=== PATIENT | male | born 1990 | race Caucasian/White ===

== ENCOUNTER 2016-09-17 02:45 | Emergency (ER) | payer SELFPAY ==
[~2016-09-17] VITALS: Ht 175.3 cm; Wt 77.0 kg
[~2016-09-17 02:45] MED LIST: ALBU1AER INH; BENZ100 PO; IBUP800T23 PO; PRED20 PO
[2016-09-17 02:53] VITALS: BP 150/95; PULSE 108; RESP 18; TEMP 98.6; O2SAT 100
[2016-09-17] MEDS ORDERED: TETANUS/DIPHTHERIA TOXOID ADULT 0.5 ML VIAL IM ONE (03:15)
[2016-09-17] MEDS ORDERED: MORPHINE SULFATE 8 MG/ML INJ IV PUSH ONE (03:15)
[2016-09-17] MEDS ORDERED: ceFAZolin 2 GM PREMIX 50 ML IV ONE (03:15)
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
[2016-09-17] MEDS ORDERED: HYDR-3533 PO (05:50)
[2016-09-17 05:52] VITALS: BP 123/66; PULSE 107; RESP 26; O2SAT 100
[2016-09-17] MEDS ORDERED: MORPHINE SULFATE 4 MG/ML INJ IV PUSH ONE (06:00)
[2016-09-17] MEDS ORDERED: oxyCODONE/ACETAMINOPHEN 5 MG/325 MG TAB PO ONE (06:30)
== END 2016-09-17 06:54 | disposition home or self-care (01) ==
LOC: NEPE 02:45
DX: S91.341A Puncture wound with foreign body, right foot, initial encounter (principal); Y24.9XXA Unspecified firearm discharge, undetermined intent, initial encounter; Y92.810 Car as the place of occurrence of the external cause; Z23 Encounter for immunization
CPT/HCPCS: 73600; 73620; 90471; 90714; 96365; 96375; 96376; 99285; E0113; J0690; J2270

== ENCOUNTER 2016-11-05 19:09 | Inpatient (IN) | payer SELFPAY ==
[~2016-11-05] VITALS: Ht 175.3 cm; Wt 85.5 kg
[~2016-11-05 19:09] MED LIST changes: -ALBU1AER INH; -BENZ100 PO; +HYDR-3533 PO; -IBUP800T23 PO; -PRED20 PO
[2016-11-05 19:10] VITALS: BP 148/74; PULSE 113; RESP 18; TEMP 98.3; O2SAT 100
[2016-11-05] MEDS ORDERED: KETOROLAC TROMETHAMINE 30 MG/ML (IVP) VIAL IVP ONE (19:30)
[2016-11-05] MEDS ORDERED: VANCOMYCIN INJ 1,000 MG in SODIUM CHLOR 0.9% 250 ML INJ 250 ML IV ONE (19:45)
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
[2016-11-05] MEDS ORDERED: ACETAMINOPHEN/HYDROcodone 325 MG/5 MG TAB PO ONE (20:00)
[2016-11-05 20:18] LABS: AUTOMATED NEUTROPHIL # 7.5 TH/MM3 (1.8-7.7); BASOPHIL % 0.4 % (0.0-2.0); EOSINOPHIL # 0.4 TH/MM3 (0-0.4); EOSINOPHIL % 3.7 % (0.0-4.0); HEMATOCRIT 42.6 % (39.0-51.0); HEMO FLAGS DIFF FINAL; LYMPH % 18.6 % (9.0-44.0); LYMPHOCYTE # 2.1 TH/MM3 (1.0-4.8); MEAN CELL VOLUME 80.7 FL (80.0-100.0); MEAN CORPUSCULAR HEMOGLOBIN 27.2 PG (27.0-34.0); MEAN CORPUSCULAR HGB CONC 33.7 % (32.0-36.0); MONO % 11.1 % (0.0-8.0); NEUT % 66.2 % (16.0-70.0); PLATELET COUNT 218 TH/MM3 (150-450); RED BLOOD COUNT 5.28 MIL/MM3 (4.50-5.90); RED CELL DISTRIBUTION WIDTH 13.8 % (11.6-17.2); WHITE BLOOD COUNT 11.3 TH/MM3 (4.0-11.0)
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
[2016-11-05 20:35] LABS: BICARBONATE 27.9 MEQ/L (21.0-32.0); POTASSIUM 5.2 MEQ/L (3.5-5.1)
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
[2016-11-05] MEDS ORDERED: BISACODYL 10 MG SUPP RECTAL PRN (21:15)
[2016-11-05] MEDS ORDERED: ACETAMINOPHEN 325 MG TAB PO PRN (21:15)
[2016-11-05] MEDS ORDERED: SENNOSIDES 8.6 MG TAB PO PRN (21:15)
[2016-11-05] MEDS ORDERED: MAGNESIUM HYDROXIDE SUSP 30 ML CUP PO PRN (21:15)
[2016-11-05] MEDS ORDERED: LACTULOSE SYRUP 20 GM/30 ML CUP PO PRN (21:15)
[2016-11-05] MEDS ORDERED: ONDANSETRON HCL 4 MG/2 ML VIAL IVP PRN (21:15)
[2016-11-05] MEDS ORDERED: Vancomycin Consult Pharmacy 1 EA OTHER SCH (21:15)
[2016-11-05] MEDS ORDERED: GADODIAMIDE PF 287 MG/ML 20 ML VIAL (for RAD MRI) IV ONE (21:34)
[2016-11-05] MEDS: SODIUM CHLOR 0.9% 1000 ML INJ 1,000 ML IV SCH (21:43)
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
[2016-11-06] VITALS (7 sets, daily range): BP systolic 107–130; BP diastolic 57–69; PULSE 83–103; RESP 14–22; TEMP 97.8–99.8; O2SAT 98–100
[2016-11-06] MEDS: CEFEPIME INJ 1,000 MG in SODIUM CHLORIDE 0.9% INJ 100 ML IV SCH ×3 (00:05→22:35)
[2016-11-06] MEDS: VANCOMYCIN INJ 1,250 MG in SODIUM CHLOR 0.9% 250 ML INJ 250 ML IV SCH ×2 (06:01→18:16)
[2016-11-06] MEDS: SODIUM CHLORIDE 0.9% FLUSH 10 ML FLUSH IV FLUSH SCH ×2 (07:48→20:19)
[2016-11-06] MEDS: DOCUSATE SODIUM 50 MG/SENNA 8.6 MG TAB PO SCH ×2 (07:49→20:19)
[2016-11-06] MEDS: SODIUM CHLOR 0.9% 1000 ML INJ 1,000 ML IV SCH ×2 (07:49→18:50)
[2016-11-06 08:34] LABS: AUTOMATED NEUTROPHIL # 4.6 TH/MM3 (1.8-7.7); BASOPHIL % 0.6 % (0.0-2.0); EOSINOPHIL # 0.4 TH/MM3 (0-0.4); EOSINOPHIL % 4.9 % (0.0-4.0); HEMATOCRIT 37.5 % (39.0-51.0); HEMO FLAGS DIFF FINAL; LYMPH % 27.6 % (9.0-44.0); LYMPHOCYTE # 2.4 TH/MM3 (1.0-4.8); MEAN CELL VOLUME 79.1 FL (80.0-100.0); MEAN CORPUSCULAR HEMOGLOBIN 27.4 PG (27.0-34.0); MEAN CORPUSCULAR HGB CONC 34.6 % (32.0-36.0); MONO % 14.4 % (0.0-8.0); NEUT % 52.5 % (16.0-70.0); PLATELET COUNT 189 TH/MM3 (150-450); RED BLOOD COUNT 4.74 MIL/MM3 (4.50-5.90); RED CELL DISTRIBUTION WIDTH 13.8 % (11.6-17.2); WHITE BLOOD COUNT 8.7 TH/MM3 (4.0-11.0)
[2016-11-06] MEDS ORDERED: MORPHINE SULFATE 4 MG/ML INJ IV PUSH ONE (08:45)
[2016-11-06 09:07] LABS: ALKALINE PHOSPHATASE 51 U/L (45-117); ALT (GPT) 104 U/L (12-78); ANION GAP 6 MEQ/L (5-15); AST (GOT) 43 U/L (15-37); BICARBONATE 27.3 MEQ/L (21.0-32.0); BLOOD UREA NITROGEN 9 MG/DL (7-18); CHLORIDE 107 MEQ/L (98-107); GLOMERULAR FILTRATION RATE 104 ML/MIN (>89); POTASSIUM 4.2 MEQ/L (3.5-5.1); SODIUM (NA) 140 MEQ/L (136-145); TOTAL BILIRUBIN ADULT 0.4 MG/DL (0.2-1.0)
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
[2016-11-06] MEDS: KETOROLAC TROMETHAMINE 30 MG/ML (IVP) VIAL IV PUSH SCH ×3 (12:05→23:49)
[2016-11-07] VITALS (7 sets, daily range): BP systolic 119–129; BP diastolic 55–80; PULSE 78–90; RESP 16–20; TEMP 97.7–98.1; O2SAT 97–100
[2016-11-07] MEDS: MORPHINE SULFATE 4 MG/ML INJ IV PUSH PRN ×6 (00:33→23:26)
[2016-11-07] MEDS: KETOROLAC TROMETHAMINE 30 MG/ML (IVP) VIAL IV PUSH SCH ×3 (05:21→17:31)
[2016-11-07] MEDS: SODIUM CHLOR 0.9% 1000 ML INJ 1,000 ML IV SCH ×2 (05:21→11:22)
[2016-11-07] MEDS ORDERED: PHARMACY ORDERED LAB ONE (05:45)
[2016-11-07] MEDS: VANCOMYCIN INJ 1,250 MG in SODIUM CHLOR 0.9% 250 ML INJ 250 ML IV SCH (06:30)
[2016-11-07] MEDS: DOCUSATE SODIUM 50 MG/SENNA 8.6 MG TAB PO SCH ×2 (07:33→21:00)
[2016-11-07] MEDS: SODIUM CHLORIDE 0.9% FLUSH 10 ML FLUSH IV FLUSH SCH ×2 (09:13→21:00)
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
[2016-11-07] MEDS ORDERED: INFLUENZA VIRUS VACCINE (QUADRIVALENT) 0.5 ML SYR IM ONE (10:00)
[2016-11-07] MEDS: CEFEPIME INJ 1,000 MG in SODIUM CHLORIDE 0.9% INJ 100 ML IV SCH (10:43)
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
[2016-11-07] MEDS ORDERED: VANCOMYCIN INJ 1,250 MG in SODIUM CHLOR 0.9% 250 ML INJ 250 ML IV SCH (14:00)
--- NOTE | 2016-11-07 16:37 | HHI.FF ---
Infusion Therapy Location of Infusion Therapy: Ambulatory Infusion Therapy Order Patient Information Patient Weight 84 kg Diagnosis: Diagnosis Cellulitis r. foot osteomyelitis r. foot. Coded Allergies: No Known Allergies (Unverified , 11/05/16) Administer Medication Ceftriaxone 2 grams IV q 24 hours Stop Treatment: Dec 19, 2016 Additional Information Venous access: PICC Line Additional Instructions [x] Peripheral flush and dressing changes per protocol [x] Implanted port and central personal lines account manager: * Implanted port: 10 ml Normal Saline followed by 5 ml Heparin 100 units/ml Heparin flush after each use and monthly to maintain. [] May leave port accessed during therapy. [] May leave peripheral site accessed for duration of therapy. [x] If patient has SOB or respiratory distress, check oxygen saturation. If less than 90% or clinical signs of respiratory distress, administer oxygen at 2 L/min. via nasal cannula and notify physician. [x] Anaphylaxis/Reaction orders: * Stop infusion. * Keep IV line open with saline flush. * Notify physician. * Monitor vital signs every 15 minutes until symptoms resolve. * Check Oxygen saturation; Oxygen at 2 L/min. via nasal cannula if less than 90% or clinical signs of respiratory distress. * Administer diphenhydramine (Benadryl) 25 mg IV STAT, (unless patient has received as pre-med). May repeat once, if necessary. * Solu-Cortef 250 mg IVP over 30-60 seconds, use 100 mg vials for each dissolution. * Epinephrine (1mg/1 ml) 0.3 mg subcutaneously or IVP now with any signs of respiratory distress. * Check with physician for new additional pre-med orders if patient is re- challenged or re-treated. [x] May remove PICC line when treatment complete, after confirming with Physician. [x] If the patient is admitted to the hospital, the ED, or transferred via [facility] , complete transfer form including medication reconciliation order sheet. Laboratory Tests Weekly Labs: BMP, SED Rate Alireza Duran MD Nov 07, 2016 16:37
[2016-11-07] MEDS ORDERED: cefTRIAXone INJ 2,000 MG in SODIUM CHLORIDE 0.9% INJ 100 ML IV SCH (17:00)
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
[2016-11-08] MEDS: KETOROLAC TROMETHAMINE 30 MG/ML (IVP) VIAL IV PUSH SCH ×3 (00:12→11:43)
[2016-11-08] MEDS: SODIUM CHLORIDE 0.9% FLUSH 10 ML FLUSH IV FLUSH PRN ×2 (00:12→05:55)
[2016-11-08] MEDS: SODIUM CHLOR 0.9% 1000 ML INJ 1,000 ML IV SCH ×2 (00:59→08:15)
[2016-11-08] MEDS ORDERED: MORPHINE SULFATE 4 MG/ML INJ IV PUSH ONE (01:15)
[2016-11-08 03:30] VITALS: BP 116/56; PULSE 94; RESP 18; TEMP 98; O2SAT 98
[2016-11-08] MEDS: MORPHINE SULFATE 4 MG/ML INJ IV PUSH PRN ×3 (03:47→11:43)
[2016-11-08] MEDS ORDERED: PHARMACY ORDERED LAB ONE (05:45)
[2016-11-08 08:00] VITALS: BP 133/93; PULSE 82; RESP 20; TEMP 97.4; O2SAT 98
[2016-11-08] MEDS: SODIUM CHLORIDE 0.9% FLUSH 10 ML FLUSH IV FLUSH SCH (08:12)
[2016-11-08] MEDS: DOCUSATE SODIUM 50 MG/SENNA 8.6 MG TAB PO SCH (08:14)
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
[2016-11-08] MEDS ORDERED: SODIUM CHLORIDE 0.9% FLUSH 10 ML FLUSH IV FLUSH PRN (10:15)
--- NOTE | 2016-11-08 10:16 | RADRPT ---
EXAM DATE/TIME: 11/08/2016 09:34 [place] COMPARISON: CHEST SINGLE AP, July 08, 2015, 21:10. INDICATIONS : PICC line placement. MEDICAL HISTORY : None. SURGICAL HISTORY : Tonsillectomy. ENCOUNTER: Initial ACUITY: 4 - 6 days PAIN SCORE: 0/10 LOCATION: Bilateral chest FINDINGS: A single view of the chest demonstrates the lungs to be symmetrically aerated without evidence of mas s, infiltrate or effusion. The cardiomediastinal contours are unremarkable. Osseous structures are intact. There is a PICC line in place from the right arm with the tip overlying the SVC. CONCLUSION: PICC line in good position. Brando Ramirez MD on November 08, 2016 at 10:13 Board Certified Radiologist. This report was verified electronically.
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
[2016-11-08] MEDS ORDERED: IBUP-232 PO (10:26)
[2016-11-08] MEDS ORDERED: OXYC-392 PO (10:26)
[2016-11-08 12:00] VITALS: BP 128/58; PULSE 95; RESP 20; TEMP 97.9; O2SAT 98
[2016-11-08 12:43] VITALS: RESP 16
[2016-11-08] MEDS ORDERED: EPIN1INJ21 SQ (15:08)
[2016-11-08] MEDS ORDERED: EPIN1INJ21 IV PUSH (15:08)
[2016-11-08] MEDS ORDERED: CEFT2INJ IM (15:08)
[2016-11-08] MEDS ORDERED: SOLU250I IV PUSH (15:08)
[2016-11-09] MEDS ORDERED: SODIUM CHLORIDE 0.9% FLUSH 10 ML FLUSH IV FLUSH SCH (09:00)
== END 2016-11-08 13:30 | disposition home or self-care (01) | DRG 540 ==
LOC: NEPD 19:09 → NEDA 21:07 → NEPGCP 23:27 → NEDA 11-06 21:23 → OBSVTOIN 11-07 07:42 → N04B 11-07 15:26
PROVIDERS: ADMIT Hospitalist; ATTEND Hospitalist
PROC: 02HV33Z Insertion of Infusion Device into Superior Vena Cava, Percutaneous Approach (ICD-10-PCS; principal; 2016-11-08)
PROC: B548ZZA Ultrasonography of Superior Vena Cava, Guidance (ICD-10-PCS; 2016-11-08)
DX: M86.8X7 Other osteomyelitis, ankle and foot (principal); L03.115 Cellulitis of right lower limb; E87.5 Hyperkalemia; E86.0 Dehydration; B19.20 Unspecified viral hepatitis C without hepatic coma
CPT/HCPCS: 36569; 71010; 73630; 73720; 76937; 80048; 80053; 80202; 82565; 83605; 85025; 85652; 86140; 86403; 87040; 87070; 87147; 87186; 87205; 96374; 96375; A9579; G0378; J0692; J0696; J1885; J2270; J3370; J7030; J7050; L2114

== ENCOUNTER 2016-12-19 00:11 | Emergency (ER) | payer SELFPAY ==
[~2016-12-19 00:11] MED LIST changes: +CEFT2INJ2 IV; -HYDR-3533 PO; +IBUP800T23 PO
[2016-12-19 00:13] VITALS: BP 141/86; PULSE 84; RESP 16; TEMP 98.4; O2SAT 99
== END 2016-12-19 01:18 | disposition left against medical advice (07) ==
LOC: NED 00:11
DX: M86.9 Osteomyelitis, unspecified (principal); Z53.21 Procedure and treatment not carried out due to patient leaving prior to being seen by health care provider
CPT/HCPCS: 99281

== ENCOUNTER 2016-12-19 14:34 | Emergency (ER) | payer SELFPAY ==
[~2016-12-19] VITALS: Ht 175.3 cm; Wt 75.0 kg
[2016-12-19 14:36] VITALS: BP 134/84; PULSE 86; RESP 20; TEMP 97.9; O2SAT 100
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
[2016-12-19] MEDS ORDERED: cefTRIAXone INJ 2,000 MG in SODIUM CHLORIDE 0.9% INJ 100 ML IV SCH (15:45)
[2016-12-19 16:33] LABS: AUTOMATED NEUTROPHIL # 1.9 TH/MM3 (1.8-7.7); BASOPHIL % 0.9 % (0.0-2.0); EOSINOPHIL # 0.2 TH/MM3 (0-0.4); EOSINOPHIL % 5.4 % (0.0-4.0); HEMATOCRIT 41.5 % (39.0-51.0); HEMO FLAGS DIFF FINAL; LYMPH % 38.6 % (9.0-44.0); LYMPHOCYTE # 1.7 TH/MM3 (1.0-4.8); MEAN CELL VOLUME 78.5 FL (80.0-100.0); MEAN CORPUSCULAR HEMOGLOBIN 25.5 PG (27.0-34.0); MEAN CORPUSCULAR HGB CONC 32.5 % (32.0-36.0); MONO % 11.9 % (0.0-8.0); NEUT % 43.2 % (16.0-70.0); PLATELET COUNT 235 TH/MM3 (150-450); RED BLOOD COUNT 5.29 MIL/MM3 (4.50-5.90); RED CELL DISTRIBUTION WIDTH 13.2 % (11.6-17.2); WHITE BLOOD COUNT 4.5 TH/MM3 (4.0-11.0)
[2016-12-19 16:53] LABS: BICARBONATE 28.8 MEQ/L (21.0-32.0); POTASSIUM 4.3 MEQ/L (3.5-5.1)
== END 2016-12-19 18:41 | disposition home or self-care (01) ==
LOC: NEPD 14:34
DX: Z02.89 Encounter for other administrative examinations (principal); F19.90 Other psychoactive substance use, unspecified, uncomplicated; Z72.0 Tobacco use; Z87.39 Personal history of other diseases of the musculoskeletal system and connective tissue; Z86.59 Personal history of other mental and behavioral disorders; Z86.19 Personal history of other infectious and parasitic diseases
CPT/HCPCS: 80048; 85025; 85652; 86140; 99283

== ENCOUNTER 2016-12-29 16:25 | Emergency (ER) | payer OTHER ==
[~2016-12-29] VITALS: Ht 167.6 cm; Wt 80.0 kg
--- NOTE | 2016-12-29 16:40 | PD ---
HPI Chief Complaint: PSYCH Time Seen by Provider: 16:37 Travel History International Travel<30 days: No Contact w/Intl Traveler<30days: No History of Present Illness HPI 26-year-old male presents to the emergency department via [facility] under the [place] Parte Act, with history of multiple substance abuse, and suicidal ideation. Patient states he has not used anything the last 2 days. He states he feels depressed and suicidal. He has no specific plan currently. He has no current acute medical problems or complaints. Patient denies recent alcohol use. Patient has no known drug allergies. PFSH Past Medical History Blood Disorders: No Anxiety: Yes Depression: Yes (PTSD) Heart Rhythm Problems: No Cancer: No Cardiovascular Problems: No High Cholesterol: No Chemotherapy: No Chest Pain: No Congestive Heart Failure: No Diminished Hearing: No Endocrine: No Genitourinary: No Hepatitis: Yes (C) Immune Disorder: No Musculoskeletal: No Neurologic: No Psychiatric: No Reproductive: No Respiratory: No Radiation Therapy: No Past Surgical History Tonsillectomy: Yes Other Surgery: Yes (Adenoids) Social History Alcohol Use: No ( ) Tobacco Use: Yes (2 pack ) Substance Use: Yes (pain meds, oxycodone, hydromorphone, dilaudid last used yesterday) Allergies-Medications (Allergen,Severity, Reaction): Coded Allergies: No Known Allergies (Unverified , 12/19/16) Reported Meds & Prescriptions Reported Meds & Active Scripts Active No Active Prescriptions or Reported Medications Review of Systems Except as stated in HPI: all other systems reviewed are Neg General / Constitutional: No: Fever Eyes: No: Visual changes HENT: No: Headaches Cardiovascular: No: Chest Pain or Discomfort Respiratory: No: Shortness of Breath Gastrointestinal: No: Abdominal Pain Genitourinary: No: Dysuria Musculoskeletal: No: Pain Skin: No Rash Neurologic: No: Weakness Psychiatric: Positive: Depression, Suicidal Ideations, Substance Abuse Endocrine: No: Polydipsia Hematologic/Lymphatic: No: Easy Bruising Physical Exam Narrative GENERAL: No Acute Distress. SKIN: Warm and dry. No Signs cellulitis. HEAD: Atraumatic. Normocephalic. EYES: Pupils equal and round. No scleral icterus. No injection or drainage. ENT: No nasal bleeding or discharge. Mucous membranes pink and moist. Pharynx clear. NECK: Trachea midline. Supple. CARDIOVASCULAR: Regular rate and rhythm. RESPIRATORY: No accessory muscle use. Clear to auscultation. Breath sounds equal bilaterally. GASTROINTESTINAL: Abdomen soft, non-tender, nondistended. Hepatic and splenic margins not palpable. MUSCULOSKELETAL: Extremities without clubbing, cyanosis, or edema. No obvious deformities. NEUROLOGICAL: Awake and alert. No obvious cranial nerve deficits. Motor grossly within normal limits. Five out of 5 muscle strength in the arms and legs. Normal speech. PSYCHIATRIC: Appropriate mood and affect; insight and judgment normal. Data Data Last Documented VS Vital Signs Date Time Temp Pulse Resp B/P Pulse Ox O2 Delivery O2 Flow Rate FiO2 12/29/16 19:13 63 16 123/57 100 Room Air 12/29/16 16:49 98.2 Orders Complete Blood Count With Diff (12/29/16 16:36) Comprehensive Metabolic Panel (12/29/16 16:36) Psych Screen (12/29/16 16:36) Drug Screen, Random Urine (12/29/16 16:36) Diet Regular Basic (12/29/16 Dinner) Labs Laboratory Tests Test 12/29/16 16:40 White Blood Count 5.5 TH/MM3 Red Blood Count 5.31 MIL/MM3 Hemoglobin 13.5 GM/DL Hematocrit 40.5 % Mean Corpuscular Volume 76.2 FL Mean Corpuscular Hemoglobin 25.4 PG Mean Corpuscular Hemoglobin 33.3 % Concent Red Cell Distribution Width 13.5 % Platelet Count 232 TH/MM3 Mean Platelet Volume 8.6 FL Neutrophils (%) (Auto) 51.6 % Lymphocytes (%) (Auto) 30.5 % Monocytes (%) (Auto) 11.3 % Eosinophils (%) (Auto) 5.6 % Basophils (%) (Auto) 1.0 % Neutrophils # (Auto) 2.8 TH/MM3 Lymphocytes # (Auto) 1.7 TH/MM3 Monocytes # (Auto) 0.6 TH/MM3 Eosinophils # (Auto) 0.3 TH/MM3 Basophils # (Auto) 0.1 TH/MM3 CBC Comment DIFF FINAL Differential Comment Sodium Level 137 MEQ/L Potassium Level 4.1 MEQ/L Chloride Level 105 MEQ/L Carbon Dioxide Level 26.1 MEQ/L Anion Gap 6 MEQ/L Blood Urea Nitrogen 12 MG/DL Creatinine 1.22 MG/DL Estimat Glomerular Filtration 72 ML/MIN Rate Random Glucose 103 MG/DL Calcium Level 8.5 MG/DL Total Bilirubin 0.4 MG/DL Aspartate Amino Transf 88 U/L (AST/SGOT) Alanine Aminotransferase 102 U/L (ALT/SGPT) Alkaline Phosphatase 66 U/L Total Protein 7.0 GM/DL Albumin 3.4 GM/DL [facility] Medical Decision Making Medical Screen Exam Complete: Yes Emergency Medical Condition: Yes Medical Record Reviewed: Yes Differential Diagnosis Multiple drug abuse. Suicidal ideation. Depression. [place] Narrative Course Patient is medically stable at time of exam. Labs ordered per psychiatric protocol. CBC is unremarkable. CMP shows slightly elevated liver functions, otherwise no acute findings. Patient is medically cleared for psychiatric evaluation. Diagnosis Primary Impression: Medical clearance for psychiatric admission Additional Impressions: Depression with suicidal ideation Substance abuse Scripts No Active Prescriptions or Reported Meds Condition: Stable Matheus Geller Dec 29, 2016 16:40 Condition: Stable Matheus Geller Dec 29, 2016 16:40
[2016-12-29 16:49] VITALS: BP 122/65; PULSE 60; RESP 18; TEMP 98.2; O2SAT 98
[2016-12-29 17:13] LABS: AUTOMATED NEUTROPHIL # 2.8 TH/MM3 (1.8-7.7); BASOPHIL # 0.1 TH/MM3 (0-0.2); EOSINOPHIL # 0.3 TH/MM3 (0-0.4); EOSINOPHIL % 5.6 % (0.0-4.0); HEMATOCRIT 40.5 % (39.0-51.0); HEMO FLAGS DIFF FINAL; LYMPH % 30.5 % (9.0-44.0); LYMPHOCYTE # 1.7 TH/MM3 (1.0-4.8); MEAN CELL VOLUME 76.2 FL (80.0-100.0); MEAN CORPUSCULAR HEMOGLOBIN 25.4 PG (27.0-34.0); MEAN CORPUSCULAR HGB CONC 33.3 % (32.0-36.0); MONO % 11.3 % (0.0-8.0); NEUT % 51.6 % (16.0-70.0); PLATELET COUNT 232 TH/MM3 (150-450); RED BLOOD COUNT 5.31 MIL/MM3 (4.50-5.90); RED CELL DISTRIBUTION WIDTH 13.5 % (11.6-17.2); WHITE BLOOD COUNT 5.5 TH/MM3 (4.0-11.0)
[2016-12-29 17:29] LABS: ANION GAP 6 MEQ/L (5-15); AST (GOT) 88 U/L (15-37); BICARBONATE 26.1 MEQ/L (21.0-32.0); BLOOD UREA NITROGEN 12 MG/DL (7-18); CHLORIDE 105 MEQ/L (98-107); GLOMERULAR FILTRATION RATE 72 ML/MIN (>89); POTASSIUM 4.1 MEQ/L (3.5-5.1); SODIUM (NA) 137 MEQ/L (136-145)
[2016-12-29 17:31] LABS: ALT (GPT) 102 U/L (12-78)
[2016-12-29 17:33] LABS: ALKALINE PHOSPHATASE 66 U/L (45-117); TOTAL BILIRUBIN ADULT 0.4 MG/DL (0.2-1.0)
[2016-12-29 19:13] VITALS: BP 123/57; PULSE 63; RESP 16; O2SAT 100
[2016-12-29 22:38] VITALS: BP 117/57; PULSE 59; RESP 16; O2SAT 99
[2016-12-30 03:22] VITALS: BP 116/58; PULSE 64; RESP 16; O2SAT 97
[2016-12-30 06:16] VITALS: BP 112/58; PULSE 55; RESP 16; O2SAT 99
[2016-12-30 07:24] VITALS: BP 115/55; PULSE 57; RESP 17; O2SAT 98
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
== END 2016-12-30 12:25 | disposition home or self-care (01) ==
LOC: NEPD 16:25
DX: F43.25 Adjustment disorder with mixed disturbance of emotions and conduct (principal); F14.10 Cocaine abuse, uncomplicated; F11.90 Opioid use, unspecified, uncomplicated; F43.10 Post-traumatic stress disorder, unspecified; F41.9 Anxiety disorder, unspecified; F17.200 Nicotine dependence, unspecified, uncomplicated
CPT/HCPCS: 80053; 80307; 85025; 99284